=== PATIENT | female | born 1950 | race Caucasian/White ===

== ENCOUNTER → 2016-12-13 | Outpatient (CLI) | payer MEDICARE, OTHER ==
--- NOTE | 2016-12-13 11:58 | KCIC ---
Examination: CT sinuses without contrast. History: History of persistent cough, sinus pressure. COMPARISON None available. TECHNIQUE Axial CT images of the sinuses were performed without contrast. Coronal sagittal reformats were performed. Exposure: One or more of the following dose reduction technique were utilized for this examination: 1. Automated exposure control. 2.Adjustment of MA and /or KV according to patient size. 3. Use of iterative reconstruction technique. Findings: The bilateral orbital globes appear intact. The retro-orbital fat is maintained. There is mild to moderate mucosal thickening identified in the bilateral ethmoidal sinus. The visualized sphenoid sinuses are clear. There is moderate size mucous retention cyst or polyp identified in the left maxillary sinus with mild mucosal thickening. There is mild mucosal thickening identified in the right maxillary sinus. Mucosal thickening causes narrowing of the bilateral ostiomeatal complexes. The nasal septum is in the midline. The mastoid air cells are clear. Impression: 1.Mild to moderate sinus disease as described above in the bilateral ethmoidal and maxillary sinuses. Electronically signed by: Juan Francisco Jefferson (December 13, 2016 11:56:18)
--- NOTE | 2016-12-13 12:33 | KCIC ---
PROCEDURE Two view chest radiograph. HISTORY Persistent cough. TECHNIQUE Two-view chest radiograph was obtained. COMPARISON None. FINDINGS The lungs are clear. The cardiopulmonary silhouette is within normal limits. There is no pleural effusion. There are minimal degenerative changes in the spine. Breast implants are noted. IMPRESSION No acute thoracic findings. Electronically signed by: Ben Gonzales MD (December 13, 2016 12:32:19)
== END | disposition home or self-care (01) ==
LOC: KCIC CT 10:08
PROVIDERS: ATTEND Otolaryngology
DX: J01.20 Acute ethmoidal sinusitis, unspecified (principal); J01.00 Acute maxillary sinusitis, unspecified
CPT/HCPCS: 70486; 71020

== ENCOUNTER 2018-03-08 23:18 | Emergency (ER) | payer MEDICARE, OTHER ==
[2018-03-09] MEDS: ACETAMINOPHEN 500 MG TABLET PO (01:45)
[2018-03-09] MEDS: ORPHENADRINE CITRATE 60 MG/2 ML VIAL. IV (02:07)
[2018-03-09] MEDS: traMADol 50 MG TABLET PO (02:08)
== END 2018-03-09 02:23 | disposition home or self-care (01) ==
LOC: ER 03-09 02:23
DX: S22.080A Wedge compression fracture of T11-T12 vertebra, initial encounter for closed fracture (principal); V49.9XXA Car occupant (driver) (passenger) injured in unspecified traffic accident, initial encounter; Y93.89 Activity, other specified; Y99.8 Other external cause status; Y92.488 Other paved roadways as the place of occurrence of the external cause
CPT/HCPCS: 72072; 72100; 72170; 72220; 96374; 99284-25; J2360

== ENCOUNTER → 2018-03-12 | Outpatient (CLI) | payer MEDICARE, OTHER | END | disposition home or self-care (01) | LOC: MRI 12:19 | DX: M48.54XA Collapsed vertebra, not elsewhere classified, thoracic region, initial encounter for fracture (principal); J90 Pleural effusion, not elsewhere classified; V86.99XA Unspecified occupant of other special all-terrain or other off-road motor vehicle injured in nontraffic accident, initial encounter | CPT/HCPCS: 72146 ==